=== PATIENT | female | born 1995 | race Caucasian/White ===

== ENCOUNTER 2021-01-05 15:30 | Emergency (ER) | payer MEDICAID, SELFPAY ==
[~2021-01-05] VITALS: Ht 149.9 cm; Wt 108.9 kg
--- NOTE | 2021-01-05 15:30 | NUR ---
Patient to ER bed 5 to gown for evaluation. Side rails up. Report given to BOBBY/ZAHRA KRISHNA.
--- NOTE | 2021-01-05 15:35 | NUR ---
ER at bedside examining patient.
[2021-01-05 15:36] VITALS: BP_SYST 160
[2021-01-05] MEDS ORDERED: ONDANSETRON 4 MG ODT TAB PO ONE (15:45)
--- NOTE | 2021-01-05 15:56 | NUR ---
pt. brought in by law enforcement for medical clearance to be admitted to [facility]. pt. c/o nausea vomitted x 2 while here, Zofran given as ordered.
[2021-01-05] MEDS ORDERED: HALOPERIDOL LACTATE 5 MG/ML VIAL IM ONE (16:00)
--- NOTE | 2021-01-05 16:11 | NUR ---
HALDOL GIVEN PT ON TELE MONITOR
[2021-01-05 16:22] LABS: BASOPHILS % (AUTO) 0.1 % (0.0-2.0); EOSINOPHILS % (AUTO) 0.2 % (0.0-4.0); HEMATOCRIT 47.4 % (36-48); HEMOGLOBIN 15.6 g/dL (12.0-16.0); LYMPHOCYTES # (AUTO) 1.9 K/uL (1.0-5.5); LYMPHOCYTES % (AUTO) 12.5 % (20.5-51.5); MEAN CORPUSCULAR HEMOGLOBIN 28 pg (27-31); MEAN CORPUSCULAR HGB CONC 33 % (32-36); MEAN CORPUSCULAR VOLUME 85 fL (79.0-98.0); MONOCYTES # (AUTO) 0.4 K/uL (0.0-1.0); NEUTROPHILS # (AUTO) 12.7 K/uL (1.8-7.7); NEUTROPHILS % (AUTO) 84.2 % (40.0-70.0); PLATELET COUNT (AUTO) 404 K/uL (130-430); RED BLOOD CELL COUNT(AUTO) 5.59 MIL/uL (4.2-6.2); RED CELL DISTRIBUTION WIDTH 15.3 % (9.0-15.0); WHITE BLOOD COUNT (AUTO) 15.1 K/uL (4.8-10.8)
[2021-01-05 16:37] LABS: BILIRUBIN,URINE NEGATIVE (NEGATIVE); CLARITY/URINE SL CLOUDY (CLEAR); COLOR,URINE YELLOW (YELLOW); GLUCOSE,URINE NEGATIVE (NEGATIVE); KETONES,URINE NEGATIVE (NEGATIVE); LEUKOCYTE ESTERASE ,URINE NEGATIVE (NEGATIVE); NITRITE, URINE NEGATIVE (NEGATIVE); PROTEIN URINE 1+ (NEGATIVE); UROBILINOGEN,URINE 0.2 (0.2-1.0)
[2021-01-05 16:45] LABS: CALCIUM 9.3 mg/dL (8.4-11.0); CREATININE 0.75 mg/dL (0.55-1.30); POTASSIUM 3.6 mmol/L (3.5-5.1)
--- NOTE | 2021-01-05 16:48 | NUR ---
pt. crying upset wants to leave Dr. perea spoke with pt. waiting for lab results
[2021-01-05 16:52] LABS: PROTHROMBIN TIME 10.4 SECS (9.5-12.5)
[2021-01-05 16:58] LABS: BLOOD, URINE TRACE (NEGATIVE)
[2021-01-05 17:00] LABS: ALBUMIN 3.8 g/dL (3.4-4.8); TOTAL BILIRUBIN 0.8 mg/dL (0.0-1.0)
[2021-01-05 17:05] LABS: BACTERIA,URINE None Seen /HPF (None Seen); CALCIUM OXALATE CRYSTALS,UR None Seen /HPF (None Seen); CALCIUM PHOSPHATE CRYSTALS,UR None Seen /HPF (None Seen); TRICHOMONAS,URINE None Seen /HPF (None Seen); WBC,URINE NONE SEEN /HPF (0-3); YEAST,URINE None Seen /HPF (None Seen)
[2021-01-05 17:05] LABS: C-REACTIVE PROTEIN QUANT 1.1 mg/dL (0-0.5)
[2021-01-05] MEDS ORDERED: ONDA-8 TL (17:12)
--- NOTE | 2021-01-05 17:30 | NUR ---
Patient given written and verbal discharge instructions and verbalizes understanding. Dr. Rowan discussed with patient the results and treatment provided. Patient in stable condition. ID arm band removed. Rx of Zofran given. Patient educated on pain management and to follow up with PMD. Pain Scale 0. Opportunity for questions provided and answered. Medication side effect fact sheet provided.
[2021-01-05 17:36] VITALS: BP_SYST 100
== END 2021-01-05 17:30 ==
LOC: SED 15:30
DX: K31.84 Gastroparesis (principal); Z79.899 Other long term (current) drug therapy; Z20.822 Contact with and (suspected) exposure to COVID-19
CPT/HCPCS: 36415; 80053; 81000; 82150; 83605; 83690; 84703; 85025; 85610; 85730; 86140; 87426; 96372; 99283; J1630; Q0162